=== PATIENT | male | born 1990 | race African-American/Black ===

== ENCOUNTER 2018-10-05 02:30 | Emergency (ER) | payer SELFPAY ==
[~2018-10-05] VITALS: Ht 182.9 cm; Wt 81.6 kg
[2018-10-05 03:10] VITALS: BP 130/75
--- NOTE | 2018-10-05 03:43 | NUR ---
[facility]: For 01/31/2013 From to, the following electronic documentation will be located in the patient handwritten chart, Following patient discharge, paper documentation will be scanned into [facility] with the remainder of the paper chart. Nursing Documentation Physician orders Medication Administration Records Medication Reconciliation Respiratory Documentation Dietary Documentation Case Management Documentation Personal Counselor Documentation
--- NOTE | 2018-10-05 03:44 | NUR ---
ED Nurse Note: Pt cleared by Health Care Provider for discharge. DC instructions/prescriptions given and explained to pt and verbalized understanding of teachings. All medical devices such as ID band removed. Pt AAO x4, ambulatory and left with all personal belongings. pt is instructed to follow up with primary MD as soon as possible. pt is insturcted to return and seek medical attention if reoccurance of symptoms. pt has left with all DC notes and has been able to teach back all instructions.
[2018-10-05 04:31] VITALS: BP 139/90
--- NOTE | 2018-10-05 04:35 | Emergency Room Report ---
History of Present Illness General Chief Complaint: Dry skin Present Illness HPI Patient reports that he has been seen by a land development project manager and has been told that he has a skin condition Patient also reports that given the severe dryness of the skin at times when it rains he has little breaks in the back of his throat and sees bleeding Denies any chest pain denies any cough at this time Patient was walking outside when he noticed it was raining and again he was concern about possible bleeding and presents to the ER Allergies: Coded Allergies: No Known Allergies (Unverified , 10/05/18) Patient History Past Medical History: see triage record Pertinent Family History: none Reviewed Nursing Documentation: PMH: Agreed; PSxH: Agreed Review of Systems All Other Systems: negative except mentioned in HPI Physical Exam 99% on room air which is normal Sp02 EP Interpretation: reviewed, normal General Appearance: well appearing, no apparent distress Head: normocephalic, atraumatic Eyes: bilateral eye PERRL, bilateral eye EOMI ENT: hearing grossly normal, normal pharynx, TMs + canals normal, uvula midline Neck: full range of motion, supple, no meningismus, no bony tend Respiratory: lungs clear, normal breath sounds, no rhonchi, no respiratory distress, no retraction, no accessory muscle use Cardiovascular #1: normal peripheral pulses, regular rate, rhythm, no edema, no gallop, no JVD, no murmur Gastrointestinal: normal bowel sounds, non tender, soft, no mass, no organomegaly, non-distended, no guarding, no hernia, no pulsatile mass, no rebound Genitourinary: no CVA tenderness Musculoskeletal: normal inspection Neurologic: oriented x3, responsive, spindle carver III-XII nml as tested, motor strength/ tone normal, sensory intact Psychiatric: mood/affect normal Skin: other - Evidence of dry skin involving naso labial folds Lymphatic: normal inspection, no adenopathy Medical Decision Making Diagnostic Impression: Primary Impression: Eczema ER Course Patient does not show any active signs of bleeding appears to have some chronic component to his presentation In an effort to prevent worsening symptoms patient is allowed to be indoors and will return with any changes Status: improved Disposition: HOME, SELF-CARE Condition: Improved Referrals: NOT CHOSEN IPA/MD,REFERRING (PCP) Additional Instructions: Patient is provided with the discharge instructions notified to follow up with primary doctor in the next 2-3 days otherwise return to the er with any worsening symptoms. Please note that this report is being documented using DRAGON technology. This can lead to erroneous entry secondary to incorrect interpretation by the dictating instrument. Ko Garcia DO Oct 05, 2018 04:35
== END 2018-10-05 03:45 | disposition home or self-care (01) ==
LOC: EMR 02:30
DX: L30.9 Dermatitis, unspecified (principal)
CPT/HCPCS: 99282